=== PATIENT | female | born 1930 | race Two or more races ===

== ENCOUNTER 2019-02-26 10:29 | Outpatient (CLI) | payer OTHER ==
[~2019-02-26 10:29] MED LIST: ALBUTEROL1.25 MG/3 IH; ARICEPT10 MG; ATIVAN0.5 MG; ATIVAN0.5 MG PO; CEFADROXIL500 MG PO; ECOTRIN81 MG; FAMOTIDINE20 MG PO; GUAIFENESI100 MG/52 PO; LEVAQUIN500 MG PO; MEDROLPACK PO; OSEL75CA PO; PERCOCET 5/321 UDTAB PO; ULTRACET PO; VASOTEC20 M1; VASOTEC20 M1 PO; XARELTO10 MG PO; ZOLOFT50 MG; ZOLOFT50 MG PO; Zofran 2MG/ML (2ML) IV
== END 2019-02-26 15:04 | disposition home or self-care (01) ==
LOC: SONOGRAMA 10:29
DX: N39.8 Other specified disorders of urinary system (principal); Q61.01 Congenital single renal cyst; R10.84 Generalized abdominal pain